=== PATIENT | male | born 1970 | race Caucasian/White ===

== ENCOUNTER → 2020-08-23 | Outpatient (CLI) | payer MEDICARE | END | disposition home or self-care (01) | LOC: LABPAT 11:57 | PROVIDERS: ATTEND Orthopaedic Surgery | DX: Z01.812 Encounter for preprocedural laboratory examination (principal) | CPT/HCPCS: 87070 ==

== ENCOUNTER → 2020-09-27 | Outpatient (CLI) | payer MEDICARE ==
--- NOTE | 2020-09-27 14:03 | MR ---
EXAMINATION TYPE: MR knee LT wo con DATE OF EXAM: 09/27/2020 COMPARISON: Plain film 08/21/2020 HISTORY: Left knee pain TECHNIQUE: Multiplanar, multisequence imaging of the left knee is performed without IV contrast. FINDINGS: MEDIAL MENISCUS: Anterior and posterior horns are intact without tear. LATERAL MENISCUS: Anterior and posterior horns are intact without tear. CRUCIATE LIGAMENTS: The anterior and posterior cruciate ligaments are intact and unremarkable. COLLATERAL LIGAMENTS: The medial collateral ligament and lateral collateral ligament complex are inta ct and unremarkable. EXTENSOR MECHANISM: Visualized quadriceps and patellar tendons are intact. EFFUSION: Suprapatellar joint effusion is present. POPLITEAL CYST: No popliteal/aguilar cyst. TRICOMPARTMENT SPACES: Maintained CARTILAGE: Grade 3 to grade IV chondromalacia posterior patella, lateral femoral condyle. BONE MARROW SIGNAL: Some minimal subchondral geode formation may be present at the lateral femoral co ndyle, axial image #20, proximal tibia, coronal image 21 OTHER: Question some ganglion formation near the intercondylar notch anteriorly, coronal image #15 a nd also posteriorly, axial image 17, sagittal image #17 IMPRESSION: Osteoarthritis. Additional findings above.
== END | disposition home or self-care (01) ==
LOC: RADMRIMAIN 10:54
PROVIDERS: ATTEND Orthopaedic Surgery
DX: M17.12 Unilateral primary osteoarthritis, left knee (principal); M22.42 Chondromalacia patellae, left knee

== ENCOUNTER → 2020-10-12 | Outpatient (CLI) | payer MEDICARE ==
[2020-10-12 11:06] LABS: Basophils % (A) 1 %; Eosinophils # (A) 0.4 k/uL (0-0.7); Eosinophils % (A) 5 %; HCT 39.5 % (39.0-53.0); HGB 13.2 gm/dL (13.0-17.5); Lymphocytes # (A) 0.7 k/uL (1.0-4.8); Lymphocytes % (A) 9 %; MCH 31.5 pg (25.0-35.0); MCHC 33.5 g/dL (31.0-37.0); Mean Platelet Volume 6.3; Monocytes # (A) 0.4 k/uL (0-1.0); Monocytes % (A) 5 %; Neutrophils # (A) 5.8 k/uL (1.3-7.7); Neutrophils % (A) 78 %; Platelet Count 309 k/uL (150-450); RDW 13.4 % (11.5-15.5); WBC 7.4 k/uL (3.8-10.6)
[2020-10-12 11:10] LABS: Potassium 5.3 mmol/L (3.5-5.1)
[2020-10-12 11:34] LABS: INR 0.9 (<1.2); Prothrombin Time 9.7 sec (9.0-12.0)
== END | disposition home or self-care (01) ==
LOC: LABPAT 10:08
PROVIDERS: ATTEND Orthopaedic Surgery
DX: Z01.818 Encounter for other preprocedural examination (principal); M17.11 Unilateral primary osteoarthritis, right knee
CPT/HCPCS: 36415; 80051; 85025; 85610

== ENCOUNTER 2020-10-15 06:05 | Inpatient (IN) | payer MEDICARE ==
[2020-10-10 14:13] VITALS: BMI 41.3
--- NOTE | 2020-10-14 10:43 | HP ---
HISTORY AND PHYSICAL REASON FOR ADMISSION: Surgery scheduled for 10/15/2020 HISTORY OF PRESENT ILLNESS: Savage Newell is a 50-year-old gentleman seen with symptomatic right knee osteoarthritis. We discussed options for treatment. He elected to proceed with right total knee arthroplasty. Consent regarding the procedure was obtained. Medical clearance was provided by Zeinab Kahn NP. PAST MEDICAL HISTORY: Hypertension, dhp-hzqwqku-gebfvmsdx diabetes, hyperlipidemia. PAST SURGICAL HISTORY: Cholecystectomy, left knee arthroscopy. MEDICATIONS: Atorvastatin, benazepril, metformin, tramadol, ibuprofen. ALLERGIES: None. SOCIAL HISTORY: Denies current tobacco use. PHYSICAL EVALUATION OF THE RIGHT KNEE: Range of motion is -2 to 120. Tenderness along the lateral joint line, crepitus lateral patellofemoral compartments with range of motion. Pain with patellofemoral compression. Ligaments appear stable. Distal neurovascular exam is intact. RADIOGRAPHS: Radiographs of the right knee reveal severe osteoarthritic changes. IMPRESSION: 1. Right knee osteoarthritis. 2. Hypertension. 3. Hyperlipidemia. 4. [id number]-thacmgddp diabetes. PLAN: Right total knee arthroplasty. Surgery 10/15/2020. MMODL / IJN: [id number] /
[~2020-10-15 06:05] MED LIST: ACETAMINOPHEN TAB 500 MG TAB PO ONE; MELOXICAM 7.5 MG TAB PO ONE; ROPIVACAINE 246.25 MG, EPINEPHrine 0.5 MG, KETOROLAC 30 MG, cloNIDine HCL/PF 80 MCG, WA... MISCELLANE ONE; TRANEXAMIC ACID 1,000 MG in SODIUM CHLORIDE 0.9% 100 ML IVPB ONE; VANCOMYCIN 2,000 MG in SODIUM CHLORIDE 0.9% 500 ML 500 ML IVPB ONE
[2020-10-15 06:46] LABS: Glucose,Whole Blood 161 mg/dL (75-99)
[2020-10-15] MEDS ORDERED: MIDAZOLAM 2 MG/2 ML VIAL IV ONE (06:52)
[2020-10-15] MEDS ORDERED: fentaNYL (PF) 50 MCG/ML 2 ML AMP IV ONE (06:52)
[2020-10-15] MEDS ORDERED: LACTATED RINGERS 1,000 ML IV ONE ×2 (07:06→09:38)
[2020-10-15] MEDS ORDERED: ONDANSETRON 4 MG/2 ML VIAL ONE (07:17)
[2020-10-15] MEDS ORDERED: DEXAMETHASONE SOD PHOSPHATE 4 MG/ML 1 ML VIAL IV ONE (07:25)
[2020-10-15] MEDS ORDERED: ONDANSETRON 4 MG/2 ML VIAL IVP ONE (07:25)
[2020-10-15] MEDS ORDERED: SODIUM CHLORIDE 0.9% 100 ML BAG ONE (07:27)
[2020-10-15] MEDS ORDERED: MIDAZOLAM 2 MG/2 ML VIAL ONE (07:27)
[2020-10-15] MEDS ORDERED: TRANEXAMIC ACID 1,000 MG/10 ML VIAL ONE (07:27)
[2020-10-15] MEDS ORDERED: diphenhydrAMINE 50 MG/ML 1 ML VIAL ONE (07:27)
[2020-10-15] MEDS ORDERED: LIDOCAINE 1% INJ 10MG/ML (20 ML MDV) ONE (07:27)
[2020-10-15] MEDS ORDERED: ceFAZolin 1,000 MG in SODIUM CHLORIDE 0.9% 1,000 ML IRRIGATION ONE (08:02)
[2020-10-15] MEDS ORDERED: ROPIVACAINE 0.2%-NS ON-Q PUMP 1,090 MG, EMPTY PAIN BALL 1 EACH MISCELLANE PRN (09:14)
[2020-10-15] MEDS ORDERED: NALOXONE 0.4 MG/ML 1 ML VIAL IV PRN (09:24)
[2020-10-15] MEDS ORDERED: ONDANSETRON 4 MG/2 ML VIAL IVP PRN (09:24)
[2020-10-15] MEDS ORDERED: HYDROcodone/APAP 5-325MG 1 EACH TAB PO PRN (09:24)
[2020-10-15] MEDS ORDERED: HYDROmorphone 0.2 MG/1 ML SYRINGE IVP PRN (09:24)
[2020-10-15] MEDS ORDERED: HYDROmorphone 0.5 MG/0.5 ML SYRINGE IVP PRN (09:24)
--- NOTE | 2020-10-15 09:24 | P.OP ---
Date of Procedure: 10/15/20 Preoperative Diagnosis: Right knee osteoarthritis Postoperative Diagnosis: Right knee osteoarthritis Procedure(s) Performed: Right total knee arthroplasty Implants: 1. Depuy attune size 7 cruciate retaining cemented femur 2. Depuy attune size 7 fixed bearing cemented tibial baseplate 3. Depuy attune size 7 fixed bearing cruciate retaining 10 mm polyethylene tibial insert 4. Depuy attune 38 mm all polyethylene cemented patella Anesthesia: regional (Adductor canal catheter), local, spinal Surgeon: Aric Kahn Deputy Treasurer #1: Mg Mckinney Estimated Blood Loss (ml): 50 Pathology: other (Bone) Condition: stable Disposition: PACU Indications for Procedure: 50-year-old gentleman seen with symptomatic right knee osteoarthritis. After treatment options were discussed, he elected to proceed with total knee arthro plasty. Operative Findings: see description of procedure Description of Procedure: Patient was taken to the operative suite after having an adductor canal catheter placed by the department of anesthesia. Patient underwent a spinal anesthetic by the department of anesthesia. Patient was given preoperative IV intake antibiotics and TXA. A well-padded tourniquet was placed about the right lower extremity. The lower extremity was then prepped and draped in the normal sterile orthopedic fashion. The extremity was elevated, a tourniquet was in sufflated to 300. A standard anterior incision was made sharply through skin. Dissection was taken down through the subcutaneous soft tissues down to the extensor mechanism. A medial arthrotomy was performed, patella was everted and knee was flexed. There was advanced osteoarthritis noted. I introduced my distal intramedullary femoral drill. I then introduced the distal femoral cutting jig. Jay Jay FORD secured the cutting jig with 2 pins. I held retractors in position while Jay Jay FORD performed the distal femoral resection through the guide area we now removed her distal femoral cutting guide. We now placed our 4-in-1 femoral cutting block and positioned and it was secured with 2 pins by Jay Jay FORD while I held the block in position. The distal femoral finishing was now completed. A proximal tibial cutting guide was positioned. I held the guide in the appropriate position with both hands well Jay Jay FORD inserted stabilizing pins into the guide. Proximal tibial cut was made. We now placed a trial femoral component into position, along with an appropriate size tibial tray and insert. We now took the knee through range of motion and had full extension good flexion and good overall soft tissue balance noted. The patella was everted and stabilized with 2 towel clips held by Jay Jay FORD while I performed a flush with patellar quad tendon utilizing a fresh sawblade. We templated the patella, appropriate drill holes were made. An appropriate trial patella was positioned, knee was taken through full range of motion with the patella tracking very nicely. The trial patella was removed. Drill holes were made through the femoral component. All trial components were removed after marking off the appropriate rotation of the tibia. Retractors were now positioned along the proximal tibia. An appropriate keel punch was made with the appropriate size tibial guide by myself on Jay Jay FORD assisted by holding retractors. At this point appropriate size implants were chosen and opened. The joint was irrigated copiously with pulse lavage mechanical irrigation. The posterior capsule was infiltrated with local analgesic. The wound was irrigated with pulse lavage mechanical irrigation. We mixed antibiotic methylmethacrylate. We placed the knee into flexion. We placed multiple retractors assisted by Jay Jay FORD to expose the proximal tibia. Once the methyl methacrylate was ready, the tibial component was cemented into place removing any excess methylmethacrylate form by both myself and Jay Jay FORD. The femoral component was cemented into place removing the removing any excess methylmethacrylate performed by both myself and Jay Jay FORD. We then inserted the appropriate size polyethylene tibial insert. We made sure that it was locked into position. We took the knee into full extension, and then back in a flexion making sure we had removed any excess methylmethacrylate. The patellar component was then cemented down and secured with clamp. Excess methylmethacrylate removed. We kept the knee in full extension, patellar clamp in position until methylmethacrylate had hardened. Once it had hardened the patellar clamp was removed. The knee was taken through full range of motion. The patella tracked nicely. There was good soft tissue balancing. The tourniquet was now released. Additional hemostasis was achieved via electrocautery. A second gram of TXA was given. The wound again was irrigated with pulse lavage mechanical irrigation. The superficial soft tissues were infiltrated local analgesic. The extensor mechanism was repaired with Vicryl. We checked the repair with range of motion and it was stable. The subcutaneous soft tissues were repaired with Vicryl in layers. The skin was approximated with pernio/Dermabond. Sterile dressings were applied followed by loose web roll and Pranav bandage. The patient was transferred to a bed, and taken to recovery in stable and satisfactory condition. Jay Jay FORD assisted with this complex procedure.
[2020-10-15 10:19] LABS: Glucose,Whole Blood 182 mg/dL (75-99)
--- NOTE | 2020-10-15 10:39 | P.ANPRN ---
Procedure Note - Anesthesia - Nerve Block Performed Right Adductor Canal Infusion Time Out Performed: Yes (651) Date of Procedure: 10/15/20 Procedure Start Time: 06:52 Procedure Stop Time: 07:01 Location of Patient: PreOp Indication: Acute Post-Operative Pain, Requested by Surgeon Specifically requested for management of pain by DrDania: Aric Kahn Sedation Type: Sedate with meaningful contact maintained Preparation: Sterile Prep Position: Supine Catheter Depth at Skin (cm): 8 Catheter: Indwelling Needle Types: Pajunk Needle Gauge: 21 Ultrasound used to visualize needle placement: Yes Ultrasound used to observe medication spread: Yes Injectate: 0.5% Ropivacaine (see comment for volume) (20cc) Blood Aspirated: No Pain Paresthesia on Injection Noted: No Resistance on Injection: Normal Image Stored and Saved: Yes Events: Uneventful and Well Tolerated
--- NOTE | 2020-10-15 10:40 | XR ---
EXAMINATION TYPE: XR knee limited RT DATE OF EXAM: 10/15/2020 CLINICAL HISTORY: Right knee status post total knee replacement. TECHNIQUE: Portable AP and crosstable lateral views of the right knee are obtained immediately posto peratively. COMPARISON: None FINDINGS: Metallic hardware from total right knee arthroplasty is seen and appears satisfactory in a lignment and position. There is evidence of recent surgery with diffuse subcutaneous gas and cutaneo us irregularity anteriorly. There is a punctate radiopaque density of the lateral anterior infrapatel lar aspect of the knee of uncertain etiology. IMPRESSION: 1. Metallic hardware from total right knee arthroplasty is satisfactory in alignment. 2. Punctate radiopaque density at the lateral anterior knee of uncertain etiology.
[2020-10-15] MEDS: LACTATED RINGERS 1,000 ML IV SCH ×2 (11:36→21:48)
[2020-10-15] MEDS: HYDROcodone/APAP 5-325MG 1 EACH TAB PO PRN (12:03)
[2020-10-15] MEDS ORDERED: ALBUTEROL NEBULIZED 2.5 MG/3 ML INHALATION PRN (13:46)
[2020-10-15] MEDS: HYDROmorphone 1 MG/ML 1 ML SYRINGE IVP PRN ×3 (14:41→22:35)
--- NOTE | 2020-10-15 14:45 | P.CONS ---
History of Present Illness - Reason for Consult Consult date: 10/15/20 Medical Management, Post-operative ortho patient - Chief Complaint s/p Right TKA - History of Present Illness 50 year old man with history of HTN, DM, HLD, OA presented for elective R TKA; medicine consulted post-operatively for medical management. Patient is doing well following procedure with complaints of some pain, which is tolerable. Still has not been up with weight bearing at the time of my evaluation on POD #0. Patient has no other complaints at this time. History of HLD, DM, HTN for which he is compliant with medications at home. He is on oral glycemic agents only and adamantly refuses insulin even while in house only. Review of Systems All Systems reviewed and pertinent positives and negatives noted in HPI, all other symptoms are negative Past Medical History Past Medical History: COPD, Diabetes Mellitus, Hyperlipidemia, Hypertension, Osteoarthritis (OA), Skin Disorder, Sleep Apnea/CPAP/BIPAP Additional Past Medical History / Comment(s): eczema right shoulder, doesn't use CPAP History of Any Multi-Drug Resistant Organisms: None Reported Past Surgical History: Cholecystectomy, Ear Surgery, Orthopedic Surgery Additional Past Surgical History / Comment(s): arthroscopy knee, left ear surg., skin lesions removed shy arms Past Anesthesia/Blood Transfusion Reactions: No Reported Reaction Past Psychological History: No Psychological Hx Reported Smoking Status: Former smoker Past Alcohol Use History: Rare Additional Past Alcohol Use History / Comment(s): quit smoking 7 yrs. ago, smoked for 30 yrs. 1ppd Past Drug Use History: None Reported - Past Family History Mother Family Medical History: Cancer Father Family Medical History: Cancer Medications and Allergies Home Medications Medication Instructions Recorded Confirmed Type Aspirin [Adult Low Dose Aspirin EC] 81 mg PO DAILY 01/12/19 10/10/20 History Atorvastatin [Lipitor] 20 mg PO HS 01/12/19 10/15/20 History Benazepril [Lotensin] 10 mg PO HS 01/12/19 10/15/20 History metFORMIN HCL [Glucophage] 850 mg PO BID 01/12/19 10/15/20 History Albuterol Inhaler [Ventolin Hfa 2 puff INHALATION RT-QID PRN 10/10/20 10/15/20 History Inhaler] Diclofenac Sodium Gel [Voltaren 4 gm TOPICAL QID PRN 10/10/20 10/15/20 History Gel] Ibuprofen [Motrin] 800 mg PO Q8H PRN 10/10/20 10/10/20 History Naproxen Sodium [Aleve] 220 mg PO BID 10/10/20 10/10/20 History traMADol HCL [Ultram] 50 mg PO Q8H PRN 10/10/20 10/15/20 History Allergies Allergy/AdvReac Type Severity Reaction Status Date / Time No Known Allergies Allergy Verified 10/15/20 06:27 Physical Exam Osteopathic Statement: *. No significant issues noted on an osteopathic structural exam other than those noted in the History and Physical/Consult. Vitals: Vital Signs Temp Pulse Resp BP Pulse Ox 10/15/20 13:05 64 123/71 96 10/15/20 12:50 66 113/85 96 10/15/20 12:35 67 118/75 96 10/15/20 12:20 64 130/84 96 10/15/20 11:30 69 16 102/52 95 10/15/20 11:00 73 16 106/58 99 10/15/20 10:45 66 12 93/54 96 10/15/20 10:30 65 12 102/57 95 10/15/20 10:15 66 12 99/56 96 10/15/20 10:00 61 12 105/59 97 10/15/20 09:49 97.8 F 77 12 108/66 96 10/15/20 07:06 70 16 131/67 100 10/15/20 06:35 97.8 F 86 16 118/66 99 Intake and Output 10/14/20 10/15/20 10/15/20 22:59 06:59 14:59 Intake Total 1801 Output Total 50 Balance 1751 Intake: IV 1801 Output: Estimated Blood Loss 50 Other: # Voids 3 Weight 139.3 kg 139.3 kg Gen: awake, alert HEENT: normocephalic, atraumatic, good hearing acuity, moist mucous membranes Resp: CTAB, good air exchange, no accessory muscle use, no wheezes, crackles, rhonchi CVS: good distal perfusion x 4, RRR, no murmurs, clicks, gallops GI: soft, NTTP, ND : no SPT, no CVAT, reich catheter not present MSK: b/l tracw pitting edema, no clubbing Neuro: non-focal, no sensory deficits, appropriate tone Psych: cooperative, euthymic mood Results Labs: Abnormal Lab Results - Last 24 Hours (Table) 10/15/20 10/15/20 Range/Units 06:45 10:18 POC Glucose (mg/dL) 161 H 182 H (75-99) mg/dL Assessment and Plan Assessment: 1. Type 2 diabetes with hyperglycemia 2. Hypertension, essential 3. Hyperlipidemia 4. Osteoarthritis status post right TKA 50-year-old male with past medical history of HTN/HLD/DM, OA status post right TKA is doing well postoperatively with complaints of minimal pain in the right knee; medicine consulted for medical management. Plan: Patient is doing well post-op. Home medications were reviewed and resumed Sugars are elevated, but patient is refusing correctional insulin; it is okay to continue holding his home oral glycemics until discharge, we will reassess if sugars >200 and ongoing need for inpatient hospitalization pain control per anesthesia and primary team, currently with OnQ pump PT/OT for early ambulation Full Code
[2020-10-15] MEDS ORDERED: INSULIN ASPART (NovoLOG) 100 UNIT/ML VIAL SQ SCH (17:30)
[2020-10-15 20:40] LABS: Glucose,Whole Blood 166 mg/dL (75-99)
[2020-10-15] MEDS: ATORVASTATIN 20 MG TAB PO SCH (21:47)
[2020-10-15] MEDS: SENNOSIDES-DOCUSATE SODIUM 1 EACH TAB PO SCH (21:47)
[2020-10-15] MEDS: lisinopriL 10 MG TAB PO SCH (21:48)
[2020-10-15] MEDS: ENOXAPARIN 30 MG/0.3 ML SYRINGE SQ SCH (21:48)
[2020-10-16] MEDS: HYDROmorphone 1 MG/ML 1 ML SYRINGE IVP PRN (03:37)
[2020-10-16] MEDS: LACTATED RINGERS 1,000 ML IV SCH ×2 (06:02→07:47)
[2020-10-16 06:58] LABS: Glucose,Whole Blood 211 mg/dL (75-99)
[2020-10-16] MEDS: ASPIRIN 81 MG PO SCH (07:47)
[2020-10-16] MEDS: ENOXAPARIN 30 MG/0.3 ML SYRINGE SQ SCH ×2 (07:47→20:55)
[2020-10-16] MEDS: MELOXICAM 7.5 MG TAB PO SCH (07:47)
[2020-10-16] MEDS: HYDROcodone/APAP 5-325MG 1 EACH TAB PO PRN (08:00)
[2020-10-16 08:22] LABS: Basophils % (A) 0 %; Eosinophils # (A) 0.1 k/uL (0-0.7); Eosinophils % (A) 1 %; HCT 35.3 % (39.0-53.0); HGB 11.7 gm/dL (13.0-17.5); Lymphocytes # (A) 0.5 k/uL (1.0-4.8); Lymphocytes % (A) 4 %; MCH 31.3 pg (25.0-35.0); MCHC 33.1 g/dL (31.0-37.0); MCV 94.7 fL (80.0-100.0); Mean Platelet Volume 6.4; Monocytes # (A) 0.6 k/uL (0-1.0); Monocytes % (A) 5 %; Neutrophils # (A) 10.2 k/uL (1.3-7.7); Neutrophils % (A) 89 %; Platelet Count 296 k/uL (150-450); RBC 3.73 m/uL (4.30-5.90); RDW 13.4 % (11.5-15.5); WBC 11.5 k/uL (3.8-10.6)
--- NOTE | 2020-10-16 08:22 | P.PN ---
Progress Note - Text Progress Note Date: 10/16/20 (310) Anesthesiology Postop day 1 status post total knee arthroplasty with adductor canal catheter. Patient doing well. VAS 5-8 out of 10. Gross strength intact in lower extremity. Afebrile. Denies alterations in sensorium. Catheter site intact. Heart regular rate Lungs nonlabored Abdomen nondistended Assessment: Postop day 1 status post total knee arthroplasty with adductor canal catheter Plan: All questions answered. Maintain catheter 2 more days with patient removal at home. Instructions were given at discharge.
[2020-10-16 11:09] LABS: Glucose,Whole Blood 219 mg/dL (75-99)
--- NOTE | 2020-10-16 12:49 | P.PN ---
Subjective Progress Note Date: 10/16/20 Having some additional pain in knee today, but is having challenging time bearing weight on right knee. Sugars have not been well controlled, but patient refuses insulin, can consider replacing his oral meds from home if patient will stay beyond tomorrow. Objective - Vital Signs Vital signs: Vital Signs Temp 98.7 F 10/16/20 07:00 Pulse 100 10/16/20 08:00 Resp 17 10/16/20 08:00 BP 120/69 10/16/20 07:00 Pulse Ox 93 L 10/16/20 07:00 Intake & Output 10/15/20 10/16/20 10/16/20 18:59 06:59 18:59 Intake Total 1801 800 Output Total 50 Balance 1751 800 Weight 139.3 kg Intake: IV 1801 Intake, IV Titration 400 Amount Lactated Ringers 1,000 ml 400 @ 100 mls/hr IV .Q10H MARCELA Rx#:[id number] Oral 400 Output: Estimated Blood Loss 50 Other: # Voids 3 2 - Exam Gen: awake, alert HEENT: normocephalic, atraumatic, good hearing acuity, moist mucous membranes Resp: CTAB, good air exchange, no accessory muscle use, no wheezes, crackles, rhonchi CVS: good distal perfusion x 4, RRR, no murmurs, clicks, gallops GI: soft, NTTP, ND : no SPT, no CVAT, reich catheter not present MSK: b/l tracw pitting edema, no clubbing Neuro: non-focal, no sensory deficits, appropriate tone Psych: cooperative, euthymic mood - Labs CBC & Chem 7: 10/16/20 07:13 Labs: Abnormal Lab Results - Last 24 Hours (Table) 10/15/20 10/16/20 10/16/20 Range/Units 20:35 06:56 07:13 WBC 11.5 H (3.8-10.6) k/uL RBC 3.73 L (4.30-5.90) m/uL Hgb 11.7 L (13.0-17.5) gm/dL Hct 35.3 L (39.0-53.0) % Neutrophils # 10.2 H (1.3-7.7) k/uL Lymphocytes # 0.5 L (1.0-4.8) k/uL POC Glucose (mg/dL) 166 H 211 H (75-99) mg/dL 10/16/20 Range/Units 11:07 WBC (3.8-10.6) k/uL RBC (4.30-5.90) m/uL Hgb (13.0-17.5) gm/dL Hct (39.0-53.0) % Neutrophils # (1.3-7.7) k/uL Lymphocytes # (1.0-4.8) k/uL POC Glucose (mg/dL) 219 H (75-99) mg/dL Assessment and Plan Assessment: 1. Type 2 diabetes with hyperglycemia 2. Hypertension, essential 3. Hyperlipidemia 4. Osteoarthritis status post right TKA 50-year-old male with past medical history of HTN/HLD/DM, OA status post right TKA is doing well postoperatively with complaints of minimal pain in the right knee; medicine consulted for medical management. Plan: Patient is doing well post-op. Home medications were reviewed and resumed Sugars are elevated, but patient is refusing correctional insulin; it is okay to continue holding his home oral glycemics until discharge, we will reassess if sugars >200 and ongoing need for inpatient hospitalization pain control per anesthesia and primary team, currently with OnQ pump PT/OT for early ambulation Full Code
[2020-10-16] MEDS ORDERED: HYDROcodone/APAP 7.5-325MG 1 EACH TAB PO PRN (12:50)
--- NOTE | 2020-10-16 12:54 | P.PN ---
Subjective Progress Note Date: 10/16/20 Principal diagnosis: Status post right total knee arthroplasty Patient Juan Alberto at bedside today, he is resting in his hospital bed. He did get up with physical therapy, he had a very difficult time with this. It is very painful when placing weight tingling. He did not get up the stairs. He has multiple stairs utilized to enter his house. He denies any headaches, lighthead edness, chest pain, shortness of breath, nausea or vomiting. Objective - Vital Signs Vital signs: Vital Signs Temp 98.7 F 10/16/20 07:00 Pulse 100 10/16/20 08:00 Resp 17 10/16/20 08:00 BP 120/69 10/16/20 07:00 Pulse Ox 93 L 10/16/20 07:00 Intake & Output 10/15/20 10/16/20 10/16/20 18:59 06:59 18:59 Intake Total 1801 800 Output Total 50 Balance 1751 800 Weight 139.3 kg Intake: IV 1801 Intake, IV Titration 400 Amount Lactated Ringers 1,000 ml 400 @ 100 mls/hr IV .Q10H MARCELA Rx#:[id number] Oral 400 Output: Estimated Blood Loss 50 Other: # Voids 3 2 - Exam Right lower extremity: Incision is clean, dry, and intact. The foam dressing is in good condition. There is minimal soft tissue swelling and ecchymosis surrounding the medial and lateral aspects of the incision. Calf is soft, no tenderness with palpation. Plantar flexion, dorsiflexion, EHL, FHL are intact. Sensory exam to light touch throughout the extremity is intact, dorsal pedis pulses 2+. - Labs CBC & Chem 7: 10/16/20 07:13 Labs: Abnormal Lab Results - Last 24 Hours (Table) 10/15/20 10/16/20 10/16/20 Range/Units 20:35 06:56 07:13 WBC 11.5 H (3.8-10.6) k/uL RBC 3.73 L (4.30-5.90) m/uL Hgb 11.7 L (13.0-17.5) gm/dL Hct 35.3 L (39.0-53.0) % Neutrophils # 10.2 H (1.3-7.7) k/uL Lymphocytes # 0.5 L (1.0-4.8) k/uL POC Glucose (mg/dL) 166 H 211 H (75-99) mg/dL 10/16/20 Range/Units 11:07 WBC (3.8-10.6) k/uL RBC (4.30-5.90) m/uL Hgb (13.0-17.5) gm/dL Hct (39.0-53.0) % Neutrophils # (1.3-7.7) k/uL Lymphocytes # (1.0-4.8) k/uL POC Glucose (mg/dL) 219 H (75-99) mg/dL Assessment and Plan Assessment: Status post right total knee arthroplasty Plan: Pain control, I did increase the oral medications DVT prophylaxis, continue current medication Wound care instructions were discussed, icing techniques discussed Continue worker physical therapy Encourage incentive spirometer Medical recommendations Plan for discharge home tomorrow Time with Patient: Less than 30
[2020-10-16] MEDS: HYDROcodone/APAP 7.5-325MG 1 EACH TAB PO PRN ×2 (12:58→20:55)
[2020-10-16 16:47] LABS: Glucose,Whole Blood 212 mg/dL (75-99)
[2020-10-16] MEDS: SENNOSIDES-DOCUSATE SODIUM 1 EACH TAB PO SCH (20:55)
[2020-10-16] MEDS: lisinopriL 10 MG TAB PO SCH (20:55)
[2020-10-16] MEDS: ATORVASTATIN 20 MG TAB PO SCH (20:55)
[2020-10-16 21:11] LABS: Glucose,Whole Blood 215 mg/dL (75-99)
[2020-10-17] MEDS: LACTATED RINGERS 1,000 ML IV SCH (04:36)
[2020-10-17] MEDS: HYDROcodone/APAP 7.5-325MG 1 EACH TAB PO PRN ×2 (04:39→10:21)
[2020-10-17 07:08] LABS: Glucose,Whole Blood 211 mg/dL (75-99)
[2020-10-17 07:55] VITALS: BP 142/80; PULSE 103; RESP 18; TEMP 98.4
[2020-10-17] MEDS ORDERED: metFORMIN 850 MG TAB PO SCH (09:00)
[2020-10-17] MEDS: MELOXICAM 7.5 MG TAB PO SCH (10:21)
[2020-10-17] MEDS: ASPIRIN 81 MG PO SCH (10:21)
[2020-10-17] MEDS: ENOXAPARIN 30 MG/0.3 ML SYRINGE SQ SCH (10:21)
--- NOTE | 2020-10-17 10:22 | P.PN ---
Subjective Progress Note Date: 10/17/20 Principal diagnosis: Status post right total knee arthroplasty Patient is examined at bedside today, he is resting in his hospital bed. Patient did do a little bit better today with the physical therapist. His pain is a little bit better controlled with the increasing oral medications. He denies any headaches, lightheadedness, chest pain, shortness of breath, nausea or vomiting. Objective - Vital Signs Vital signs: Vital Signs Temp 98.4 F 10/17/20 07:00 Pulse 103 H 10/17/20 07:00 Resp 18 10/17/20 07:00 BP 142/80 10/17/20 07:00 Pulse Ox 97 10/17/20 07:00 Intake & Output 10/16/20 10/17/20 10/17/20 18:59 06:59 18:59 Other: Voiding Method Toilet Urinal # Voids 2 - Exam Right lower extremity: Incision is clean, dry, and intact. The foam dressing is in good condition. There is minimal soft tissue swelling and ecchymosis surrounding the medial and lateral aspects of the incision. Calf is soft, no tenderness with palpation. Plantar flexion, dorsiflexion, EHL, FHL are intact. Sensory exam to light touch throughout the extremity is intact, dorsal pedis pulses 2+. - Labs CBC & Chem 7: 10/16/20 07:13 Labs: Abnormal Lab Results - Last 24 Hours (Table) 10/16/20 10/16/20 10/16/20 Range/Units 11:07 16:45 20:43 POC Glucose (mg/dL) 219 H 212 H 215 H (75-99) mg/dL 10/17/20 Range/Units 07:07 POC Glucose (mg/dL) 211 H (75-99) mg/dL Assessment and Plan Assessment: Status post right total knee arthroplasty Plan: Pain control, plan for discharge home on [place] 7.5 mg/325 mg DVT prophylaxis, aspirin 81 mg twice a day Wound care instructions were discussed, icing techniques discussed Continue worker physical therapy Encourage incentive spirometer Medical recommendations Plan for discharge home today Time with Patient: Less than 30
--- NOTE | 2020-10-17 10:25 | P.DS ---
Providers Date of admission: 10/15/2020 Expected date of discharge: 10/17/20 Attending physician: Aric Kahn Consults: 10/15/20 09:24 Consult Physician Routine Consulting Provider: Chin Light Consult Reason/Comments: Medical management Do you want consulting provider notified?: Yes Primary care physician: Zeinab [facility] Course: Date of admission: 10/15/2020 Date of discharge: 10/17/2020 Admission diagnosis: Status post right total knee arthroplasty Discharge diagnosis: Same Attending physician: Dr. Kahn Surgical procedures: Right total knee arthroplasty Brief history: Patient is a 50-year-old male with a history of progressive primary right knee osteoarthritis. At this point patient has failed conservative treatment measures and has opted to proceed with a elective right total knee arthroplasty. Hospital course: Details of patient's surgery can be found in operative report. Patient tolerated the procedure well and was subsequently transported to orthopedic floor. Patient's orthopeidc and medical care was provided daily. Patient had daily laboratory tests performed for evaluation of overall blood counts. Patient had daily physical therapy to include strengthening range of motion as well as education with walker ambulation. Patient was treated with Lovenox for their postoperative DVT prophylaxis during their inpatient stay. Patient was noted to have a relatively uneventful postoperative course. Patient reported satisfactory pain control with oral pain medications by postoperative day 0. Patient showed satisfactory progress with physical therapy. Patient moved steadily through the program and had no difficulty meeting the goals by postoperative day 2. Given patient's otherwise satisfactory course and having met physical therapy goals, plan is to discharge patient home on postoperative day 2. Discharge condition/disposition: Patient will be discharged home in stable condition. Discharge medications: Instructions are given on resumption of patient's normal daily medications per primary care recommendation, in addition patient will be prescribed for 7.5 mg/25 mg, Colace 100 mg. Discharge instructions: 1. Wound care and infection precautions, keep incision dry and covered while showering, no lotions, creams, moisturizers. No soaking, tubs, pools, hottubs. Do not scrub over the incision. Okay to remove dressing on 10/25/2020, okay to shower over the incision once the foam dressing has been removed. 2. Weight-bear as tolerated with walker / cane until follow-up. 3. Ice and elevate when necessary. Do not exceed 20 minutes per hour with ice pack. 4. Utilize compression sleeve until seen at first follow up appointment. 5. Visiting nursing care. 6. Home physical therapy including home CPM. 7. Pain meds and anticoagulants per prescription. 8. Pain medication has potential to cause constipation. Increase oral fluid and fiber intake. Contact primary care provider if you have not had a bowel movement within 48 hours after discharge 9. No anti-inflammatory medication until discussed at first post operative visit, this including Motrin, Aleve, Mobic, Diclofenac 10. Follow up in office at 2 weeks postop with Jay Jay Mckinney PA-C 11. Follow up with your primary care doctor 7-10 days after discharge. 12. Contact [facility] with any questions, . Procedures: Right total knee arthroplasty Patient Condition at Discharge: Good Plan - Discharge Summary Discharge Rx Participant: No New Discharge Prescriptions: New Aspirin [Adult Low Dose Aspirin EC] 81 mg PO BID #60 tablet. Docusate [Colace] 100 mg PO DAILY #30 capsule HYDROcodone/APAP 7.5-325MG [Eakly 7.5] 1 - 2 each PO Q6HR PRN #42 tab PRN Reason: Pain No Action metFORMIN HCL [Glucophage] 850 mg PO BID Benazepril [Lotensin] 10 mg PO HS Atorvastatin [Lipitor] 20 mg PO HS Aspirin [Adult Low Dose Aspirin EC] 81 mg PO DAILY Diclofenac Sodium Gel [Voltaren Gel] 4 gm TOPICAL QID PRN PRN Reason: Pain traMADol HCL [Ultram] 50 mg PO Q8H PRN PRN Reason: Pain Naproxen Sodium [Aleve] 220 mg PO BID Ibuprofen [Motrin] 800 mg PO Q8H PRN PRN Reason: Pain Albuterol Inhaler [Ventolin Hfa Inhaler] 2 puff INHALATION RT-QID PRN PRN Reason: Dyspnea Discharge Medication List Aspirin [Adult Low Dose Aspirin EC] 81 mg PO DAILY 01/12/19 [History] Atorvastatin [Lipitor] 20 mg PO HS 01/12/19 [History] Benazepril [Lotensin] 10 mg PO HS 01/12/19 [History] metFORMIN HCL [Glucophage] 850 mg PO BID 01/12/19 [History] Albuterol Inhaler [Ventolin Hfa Inhaler] 2 puff INHALATION RT-QID PRN 10/10/20 [History] Diclofenac Sodium Gel [Voltaren Gel] 4 gm TOPICAL QID PRN 10/10/20 [History] Ibuprofen [Motrin] 800 mg PO Q8H PRN 10/10/20 [History] Naproxen Sodium [Aleve] 220 mg PO BID 10/10/20 [History] traMADol HCL [Ultram] 50 mg PO Q8H PRN 10/10/20 [History] Aspirin [Adult Low Dose Aspirin EC] 81 mg PO BID #60 tablet.dr 10/17/20 [Rx] Docusate [Colace] 100 mg PO DAILY #30 capsule 10/17/20 [Rx] HYDROcodone/APAP 7.5-325MG [Eakly 7.5] 1 - 2 each PO Q6HR PRN #42 tab 10/17/20 [Rx] Follow up Appointment(s)/Referral(s): [facility] [NON-STAFF] - As Needed (Continuous Passive Motion knee machine and walker.) Zeinab Kilpatrick MD [Primary Care Provider] - 1 Week [facility], [NON-STAFF] - As Needed Mg Mckinney PAC [PHYSICIAN SOLAR THERMAL INSTALLER] - 10/31/20 1:50 pm Activity/Diet/Wound Care/Special Instructions: Orthopedic Discharge Instructions: 1. Wound care and infection precautions, keep incision dry and covered while showering, no lotions, creams, moisturizers. No soaking, pools, hot tubs. Do not scrub over incision. Okay to remove foam dressing on 10/25/2020, okay to shower over incision after foam dressing comes off 2. Weight-bear as tolerated with walker / cane until follow-up. 3. Ice and elevate when necessary. Do not exceed 20 minutes per hour with ice pack. 4. Utilize compression sleeve until seen at first follow up appointment. 5. Pain meds and anticoagulants per prescription. 6. Pain medication has potential to cause constipation. Increase oral fluid and fiber intake. Contact primary care provider if you have not had a bowel movement within 48 hours after discharge. 7. No anti-inflammatory medication until discussed at first post operative visit, this including Motrin, Aleve, Mobic, Diclofenac. 8. Follow up in office at 2 weeks postop with Jay Jay Mckinney PA-C 9. Follow up with your primary care doctor 7-10 days after discharge. 10. Contact [facility] with any questions, . Discharge Disposition: HOME WITH HOME HEALTH SERVICES
--- NOTE | 2020-10-17 16:36 | P.PN ---
Subjective Progress Note Date: 10/17/20 No new complaints today. patient to be dsicharged home with PT/OT. Sugars remain high without metformin. Objective - Vital Signs Vital signs: Vital Signs Temp 98.4 F 10/17/20 07:00 Pulse 103 H 10/17/20 07:00 Resp 18 10/17/20 07:00 BP 142/80 10/17/20 07:00 Pulse Ox 97 10/17/20 07:00 Intake & Output 10/16/20 10/17/20 10/17/20 18:59 06:59 18:59 Other: Voiding Method Toilet Urinal # Voids 2 - Exam Gen: awake, alert HEENT: normocephalic, atraumatic, good hearing acuity, moist mucous membranes Resp: CTAB, good air exchange, no accessory muscle use, no wheezes, crackles, rhonchi CVS: good distal perfusion x 4, RRR, no murmurs, clicks, gallops GI: soft, NTTP, ND : no SPT, no CVAT, reich catheter not present MSK: b/l tracw pitting edema, no clubbing Neuro: non-focal, no sensory deficits, appropriate tone Psych: cooperative, euthymic mood - Labs CBC & Chem 7: 10/16/20 07:13 Labs: Abnormal Lab Results - Last 24 Hours (Table) 10/16/20 10/16/20 10/17/20 Range/Units 16:45 20:43 07:07 POC Glucose (mg/dL) 212 H 215 H 211 H (75-99) mg/dL Assessment and Plan Assessment: 1. Type 2 diabetes with hyperglycemia 2. Hypertension, essential 3. Hyperlipidemia 4. Osteoarthritis status post right TKA 50-year-old male with past medical history of HTN/HLD/DM, OA status post right TKA is doing well postoperatively with complaints of minimal pain in the right knee; medicine consulted for medical management. Plan: Patient is doing well post-op. Home medications were reviewed and resumed Sugars are elevated, but patient is refusing correctional insulin; continued metformin today on day of discharge. pain control per anesthesia and primary team, currently with OnQ pump PT/OT for early ambulation Full Code
== END 2020-10-17 13:26 | disposition home health service (06) | DRG 470 ==
LOC: OR 06:05 → 4SSUR 11:33 → OR 10-16 10:37 → OBSVTOIN 10-16 12:54
PROVIDERS: ADMIT Orthopaedic Surgery; ATTEND Orthopaedic Surgery
PROC: 0SRC0J9 Replacement of Right Knee Joint with Synthetic Substitute, Cemented, Open Approach (ICD-10-PCS; principal; 2020-10-15 07:30)
DX: M17.11 Unilateral primary osteoarthritis, right knee (principal); E11.65 Type 2 diabetes mellitus with hyperglycemia; J44.9 Chronic obstructive pulmonary disease, unspecified; E78.5 Hyperlipidemia, unspecified; I10 Essential (primary) hypertension; G47.33 Obstructive sleep apnea (adult) (pediatric); L30.9 Dermatitis, unspecified; Z79.82 Long term (current) use of aspirin; Z79.84 Long term (current) use of oral hypoglycemic drugs; Z79.899 Other long term (current) drug therapy; Z90.49 Acquired absence of other specified parts of digestive tract; Z98.890 Other specified postprocedural states; Z87.891 Personal history of nicotine dependence; Z80.9 Family history of malignant neoplasm, unspecified
CPT/HCPCS: 64448; 76942; 85025; 88300

== ENCOUNTER → 2021-01-19 | Outpatient (CLI) | payer MEDICARE ==
--- NOTE | 2021-01-19 13:21 | MR ---
EXAMINATION TYPE: MR knee LT wo con DATE OF EXAM: 01/19/2021 COMPARISON: Prior MRI left knee September 27, 2020 HISTORY: Lt knee pain with locking for 12 years TECHNIQUE: Multiplanar, multisequence imaging of the left knee is performed without IV contrast. FINDINGS: Examination is suboptimal as patient continues to move despite multiple warnings. MEDIAL MENISCUS: New subtle oblique linear signal seen best on coronal image 21 extends to inferior a rticular surface posterior horn. LATERAL MENISCUS: Anterior and posterior horns are intact without new tear. More central increased si gnal along superior portion of the anterior horn is unchanged. Intrasubstance tear suspected. CRUCIATE LIGAMENTS: The anterior and posterior cruciate ligaments are intact and unremarkable. COLLATERAL LIGAMENTS: The medial collateral ligament and lateral collateral ligament complex are inta ct and unremarkable. EXTENSOR MECHANISM: Visualized quadriceps and patellar tendons are intact. EFFUSION: Tiny suprapatellar joint effusion is stable. POPLITEAL CYST: No popliteal/aguilar cyst. TRICOMPARTMENT SPACES: Mild to moderate tricompartment joint space loss and spurring. CARTILAGE: Some chondromalacia patella particularly along the lateral posterior patellar articulating facet. Some cartilaginous loss medial tibiofemoral compartment redemonstrated. BONE MARROW SIGNAL: No focal abnormal marrow signal is appreciated. OTHER: No additional significant abnormality is appreciated. IMPRESSION: Suboptimal study. Mild to moderate tricompartment degenerative changes somewhat prominent for patient's chronologic age. No significant interval progression from prior MRI. Suspect new subtl e oblique full-thickness tear posterior horn medial meniscus versus old MRI.
== END | disposition home or self-care (01) ==
LOC: RADMRIMAIN 11:55
PROVIDERS: ATTEND Orthopaedic Surgery
DX: M17.12 Unilateral primary osteoarthritis, left knee (principal)

== ENCOUNTER → 2021-02-18 | Outpatient (CLI) | payer MEDICARE ==
[2021-02-18 16:27] LABS: Basophils # (A) 0.03 X 10*3/uL (0.00-0.10); Basophils % (A) 0.4 %; Eosinophils # (A) 0.33 X 10*3/uL (0.04-0.35); Eosinophils % (A) 4.5 %; HCT 40.4 % (39.6-50.0); HGB 13.3 g/dL (13.0-17.0); Lymphocytes # (A) 0.77 X 10*3/uL (0.90-5.00); Lymphocytes % (A) 10.4 %; MCH 31.6 pg (27.0-32.0); MCHC 32.9 g/dL (32.0-37.0); Mean Platelet Volume 8.9 fL (9.5-12.2); Monocytes % (A) 8.1 %; Neutrophils # (A) 5.62 X 10*3/uL (1.80-7.70); Neutrophils % (A) 75.8 %; Platelet Count 337 X 10*3/uL (140-440); RBC 4.21 X 10*6/uL (4.40-5.60); RDW 13.5 % (11.5-14.5); WBC 7.41 X 10*3/uL (4.50-10.00)
[2021-02-18 17:21] LABS: Anion Gap 6.3 mmol/L (4.00-12.00); Carbon Dioxide 28.7 mmol/L (21.6-31.8)
== END | disposition home or self-care (01) ==
LOC: LABWHC1 09:57
PROVIDERS: ATTEND Orthopaedic Surgery
DX: Z01.818 Encounter for other preprocedural examination (principal); M23.92 Unspecified internal derangement of left knee
CPT/HCPCS: 36415; 80051; 85025

== ENCOUNTER 2021-02-27 10:35 | Day surgery (SDC) | payer MEDICARE ==
[2021-02-22 11:08] VITALS: BMI 41.2
--- NOTE | 2021-02-26 23:15 | HP ---
HISTORY AND PHYSICAL DATE OF SURGERY: 02/27/2021 Savage Newell is a 50-year-old gentleman seen with progressive left knee pain. Options for treatment were discussed. He elected to proceed with arthroscopy. Consent was obtained. PAST MEDICAL HISTORY: Hypertension, hyperlipidemia, hwb-xidhcqb-vbbfwjguc diabetes. PAST SURGICAL HISTORY: Cholecystectomy, knee arthroscopy. DAILY MEDICATIONS: Atorvastatin, aspirin, benazepril, metformin. ALLERGIES: NONE. SOCIAL HISTORY: He denies tobacco use. PHYSICAL EVALUATION OF THE LEFT KNEE: His range of motion is negative 2/3 to 120. Mild effusion. Tenderness, medial joint line. Positive medial Eliel's. Pain with patellofemoral compression. Crepitus in medial patellofemoral compartments. Ligaments stable. Hip rotation without pain. Distal neurovascular exam intact. RADIOGRAPHS: Left knee radiographs revealed osteoarthritic changes, left knee. MRI revealed a medial meniscal tear. IMPRESSION: 1. Internal derangement of left knee with medial meniscal tear. 2. Hypertension. 3. Hyperlipidemia. 4. Pif-llavmfx-yujvzuudg diabetes. PLAN: Left knee arthroscopy with partial meniscectomy and debridement. MMODL / IJN: [id number] /
[~2021-02-27 10:35] MED LIST changes: -ACETAMINOPHEN TAB 500 MG TAB PO ONE; +LACTATED RINGERS 1,000 ML IV SCH; +LIDOCAINE 1% (10MG/ML) FOR IV START INTRADERMA PRN; -MELOXICAM 7.5 MG TAB PO ONE; -ROPIVACAINE 246.25 MG, EPINEPHrine 0.5 MG, KETOROLAC 30 MG, cloNIDine HCL/PF 80 MCG, WA... MISCELLANE ONE; -TRANEXAMIC ACID 1,000 MG in SODIUM CHLORIDE 0.9% 100 ML IVPB ONE; -VANCOMYCIN 2,000 MG in SODIUM CHLORIDE 0.9% 500 ML 500 ML IVPB ONE; +ceFAZolin 3 GM in SODIUM CHLORIDE 0.9% 100 ML IVPB PRN
[2021-02-27] MEDS ORDERED: ONDANSETRON 4 MG/2 ML VIAL IVP ONE (11:26)
[2021-02-27] MEDS ORDERED: DEXAMETHASONE SOD PHOSPHATE 4 MG/ML 1 ML VIAL IVP ONE (11:26)
[2021-02-27] MEDS ORDERED: ONDANSETRON 4 MG/2 ML VIAL ONE (11:36)
[2021-02-27 11:44] LABS: Glucose,Whole Blood 176 mg/dL (75-99)
[2021-02-27] MEDS ORDERED: fentaNYL (PF) 50 MCG/ML 2 ML AMP ONE (12:50)
[2021-02-27] MEDS ORDERED: LIDOCAINE 1% INJ 10MG/ML (20 ML MDV) ONE (12:50)
[2021-02-27] MEDS ORDERED: PROPOFOL 10 MG/ML 20 ML VIAL IV ONE (12:50)
[2021-02-27] MEDS ORDERED: SUCCINYLCHOLINE CHLORIDE 100 MG/5 ML SYR IV ONE (12:50)
[2021-02-27] MEDS ORDERED: BUPIVACAINE (PF) 0.25% 30 ML VIAL INTRAARTIC ONE ×2 (13:14→13:22)
--- NOTE | 2021-02-27 13:36 | P.OP ---
Date of Procedure: 02/27/21 Preoperative Diagnosis: Internal derangement left knee Postoperative Diagnosis: 1. Tear medial meniscus left knee 2. Reactive synovitis medial, lateral and suprapatellar compartments left knee Procedure(s) Performed: 1. Arthroscopic partial medial meniscectomy left knee 2. Arthroscopic partial synovectomy medial, lateral and suprapatellar compartments left knee Anesthesia: MICHELA, local Surgeon: Aric Kahn Estimated Blood Loss (ml): 7 Pathology: none sent Condition: stable Disposition: PACU Indications for Procedure: 50-year-old gentleman seen with progressive right knee pain. We discussed treatment options. He elected to proceed with arthroscopy. Operative Findings: see description of procedure Description of Procedure: Patient was taken to the operative suite. Patient underwent a general anesthetic by the department of anesthesia. Patient was given preoperative antibiotics. The left lower extremity was placed in a well-padded arthroscopic leg [place]. The left leg was prepped and draped in the normal sterile orthopedic fashion. A lateral parapatellar and suprapatellar incision was made. Trochars were inserted. Arthroscopy was initiated. Suprapatellar pouch revealed diffuse thick reactive synovitis. The patellofemoral joint appeared to articulate congruently. There was grade 1 chondromalacia with no osteochondral tears present. The scope was guided into the medial gutter. The scope was then guided into the medial compartment. A medial parapatellar incision was made. Trocar inserted followed by probe. There was a radial tear posterior horn medial meniscus. There was no significant chondromalacia present. There was thick reactive synovitis anteriorly. I performed a partial medial meniscectomy getting down to stable meniscal tissue. I performed a partial synovectomy decom pressing thick reactive synovitis anteriorly. The residual meniscus was probed and found to be stable. There was good decompression of synovitis. Scope and probe were then guided into the intercondylar notch. Cruciates were identified, probed and found to be stable. The scope and probe were then guided into lateral compartment. There was no significant chondromalacia. The lateral meniscus was probed and found to be stable. Her was some thick reactive synovitis anteriorly. I introduced a motorized shaver and performed a partial synovectomy decompressing the thick reactive synovitis. Shaver was removed. There was good decompression of the reactive synovitis noted. The scope was in guided back into the suprapatellar compartment. Used a motorized shaver into the super patellar compartment. I debrided some piecemeal fragments of meniscus I encountered. I performed a partial synovectomy decompressing the reactive synovitis. Instruments were now removed from the joint. The joint was infiltrated with .25% Marcaine. Steri-Strips were applied to the portal sites. Sterile dressings were applied. The patient was placed into a MICAH hose. No tourniquet was utilized. The patient was awakened, transferred to a bed and taken to recovery stable satisfactory condition.
[2021-02-27] MEDS ORDERED: HYDROmorphone 0.5 MG/0.5 ML SYRINGE IVP ONE ×2 (13:47→14:08)
[2021-02-27 13:58] VITALS: TEMP 97
[2021-02-27 14:06] LABS: Glucose,Whole Blood 192 mg/dL (75-99)
[2021-02-27 14:33] VITALS: RESP 20
[2021-02-27] MEDS ORDERED: HYDROcodone/APAP 7.5-325MG 1 EACH TAB ONE (14:43)
[2021-02-27] MEDS ORDERED: HYDROcodone/APAP 7.5-325MG 1 EACH TAB PO ONE (14:45)
[2021-02-27 15:16] VITALS: BP 138/78; PULSE 90
== END 2021-02-27 15:37 | disposition home or self-care (01) ==
LOC: OR 10:35
PROVIDERS: ATTEND Orthopaedic Surgery
DX: M23.322 Other meniscus derangements, posterior horn of medial meniscus, left knee (principal); M65.862 Other synovitis and tenosynovitis, left lower leg; M94.262 Chondromalacia, left knee; M17.12 Unilateral primary osteoarthritis, left knee; I10 Essential (primary) hypertension; E78.5 Hyperlipidemia, unspecified; E11.9 Type 2 diabetes mellitus without complications; K08.89 Other specified disorders of teeth and supporting structures; J44.9 Chronic obstructive pulmonary disease, unspecified; Z90.49 Acquired absence of other specified parts of digestive tract; Z98.890 Other specified postprocedural states; Z79.899 Other long term (current) drug therapy; Z79.82 Long term (current) use of aspirin; Z79.84 Long term (current) use of oral hypoglycemic drugs; Z79.1 Long term (current) use of non-steroidal anti-inflammatories (NSAID); Z79.891 Long term (current) use of opiate analgesic
CPT/HCPCS: 29881; J1100; J0690; J2405; J2001; J3010; J0330; J2704; J1170

== ENCOUNTER → 2021-07-17 | Outpatient (CLI) | payer MEDICARE ==
--- NOTE | 2021-07-18 02:37 | MR ---
EXAMINATION TYPE: MR knee LT wo con DATE OF EXAM: 07/17/2021 COMPARISON: 01/19/2021 HISTORY: Left knee pain. The planar multiecho imaging of the left knee without contrast. The anterior and posterior cruciate ligaments appear intact. There is knee joint effusion. The collat eral ligaments appear intact. There is increased signal in the anterior aspect of the lateral horn of the lateral meniscus. This is consistent with an oblique tear extending to the superior surface. There is tear extending horizonta lly as well. The posterior horn of the lateral meniscus appears fairly normal. There is slight truncation of the posterior horn of the medial meniscus. This could be previous surge ry. I do not see a tear of the medial meniscus. Exam limited slightly by motion. There is no evidence of a fracture. I see no focal bone destruction. There is no bone edema. IMPRESSION: Complex tear of the anterior horn of the lateral meniscus. This appears similar to old exam. Mild phan ncation posterior horn medial meniscus could relate to old tear or surgery and appears increased comp ared to old exam.. Knee joint effusion. No evidence of ligamentous tear. No fracture. Joint effusion increased compared to old exam.
== END | disposition home or self-care (01) ==
LOC: RADMRIMAIN 19:11
PROVIDERS: ATTEND Orthopaedic Surgery
DX: S83.272A Complex tear of lateral meniscus, current injury, left knee, initial encounter (principal); X58.XXXA Exposure to other specified factors, initial encounter

== ENCOUNTER → 2021-08-15 | Outpatient (CLI) | payer MEDICARE ==
[2021-08-15 13:31] LABS: Basophils % (A) 1 %; Eosinophils # (A) 0.4 k/uL (0-0.7); Eosinophils % (A) 5 %; HGB 14.1 gm/dL (13.0-17.5); Lymphocytes # (A) 0.8 k/uL (1.0-4.8); Lymphocytes % (A) 10 %; MCH 30.3 pg (25.0-35.0); MCV 94.8 fL (80.0-100.0); Mean Platelet Volume 6.8; Monocytes # (A) 0.4 k/uL (0-1.0); Monocytes % (A) 5 %; Neutrophils # (A) 6.2 k/uL (1.3-7.7); Neutrophils % (A) 78 %; Platelet Count 340 k/uL (150-450); RBC 4.64 m/uL (4.30-5.90); WBC 7.9 k/uL (3.8-10.6)
[2021-08-15 13:50] LABS: Potassium 4.6 mmol/L (3.5-5.1)
== END | disposition home or self-care (01) ==
LOC: LABPAT 12:17
PROVIDERS: ATTEND Orthopaedic Surgery
DX: Z01.812 Encounter for preprocedural laboratory examination (principal); M23.92 Unspecified internal derangement of left knee
CPT/HCPCS: 36415; 80051; 85025; 93005

== ENCOUNTER 2021-08-28 08:45 | Day surgery (SDC) | payer MEDICARE ==
[2021-08-22 17:35] VITALS: BMI 42.7
--- NOTE | 2021-08-27 14:22 | HP ---
HISTORY AND PHYSICAL DATE OF SURGERY: 08/28/2021 Savage Newell is a 51-year-old gentleman seen with progressive left knee pain. We discussed options for treatment. He elected to proceed with arthroscopy. Consent was obtained. PAST MEDICAL HISTORY: Hyperlipidemia, hypertension, waw-iylkzqj-ujqqnhqrz diabetes. PAST SURGICAL HISTORY: Cholecystectomy, right total knee arthroplasty, left knee arthroscopy. DAILY MEDICATIONS: Atorvastatin, benazepril, metformin, ibuprofen, Tylenol. ALLERGIES: NONE. SOCIAL HISTORY: He denies current tobacco use. PHYSICAL EVALUATION OF THE LEFT KNEE: Range of motion is negative 2/3 to 120. Moderate effusion. Tenderness, lateral joint line. Positive lateral Eliel's. Ligaments stable. Hip rotation without pain. Distal neurovascular exam intact. IMAGING: Radiographs of the left knee reveal osteoarthritic changes. MRI left knee revealed lateral meniscal tear. IMPRESSION: 1. Internal derangement of left knee with lateral meniscal tear. 2. Hypertension. 3. Hyperlipidemia. 4. War-osqhbcf-chfnzcnby diabetes. PLAN: Left knee arthroscopy with partial meniscectomy and debridement. MMODL / IJN: [id number] /
[~2021-08-28 08:45] MED LIST changes: -LACTATED RINGERS 1,000 ML IV SCH; -LIDOCAINE 1% (10MG/ML) FOR IV START INTRADERMA PRN
[2021-08-28] MEDS ORDERED: LACTATED RINGERS 1,000 ML IV ONE (09:40)
[2021-08-28] MEDS ORDERED: ONDANSETRON 4 MG/2 ML VIAL ONE (09:40)
[2021-08-28] MEDS ORDERED: LIDOCAINE 1% (10MG/ML) FOR IV START INTRADERMA ONE (09:40)
[2021-08-28] MEDS ORDERED: DEXAMETHASONE SOD PHOSPHATE 4 MG/ML 1 ML VIAL IV ONE (09:45)
[2021-08-28 09:50] LABS: Glucose,Whole Blood 141 mg/dL (75-99)
[2021-08-28] MEDS ORDERED: MIDAZOLAM 2 MG/2 ML VIAL ONE (10:12)
[2021-08-28] MEDS ORDERED: PROPOFOL 10 MG/ML 20 ML VIAL IV ONE (10:12)
[2021-08-28] MEDS ORDERED: SUCCINYLCHOLINE CHLORIDE VIAL 200 MG/10 ML VIAL IV ONE (10:12)
[2021-08-28] MEDS ORDERED: fentaNYL (PF) 50 MCG/ML 2 ML AMP ONE (10:12)
[2021-08-28] MEDS ORDERED: LIDOCAINE 1% INJ 10MG/ML (20 ML MDV) ONE (10:12)
[2021-08-28] MEDS ORDERED: BUPIVACAINE (PF) 0.25% 30 ML VIAL SQ ONE ×3 (10:24→10:56)
--- NOTE | 2021-08-28 11:11 | P.OP ---
Date of Procedure: 08/28/21 Preoperative Diagnosis: Internal derangement left knee Postoperative Diagnosis: 1. Lateral meniscal tear left knee 2. Reactive synovitis medial, lateral and suprapatellar compartments left knee Procedure(s) Performed: 1. Arthroscopic partial lateral meniscectomy left knee 2. Arthroscopic partial synovectomy medial, lateral and suprapatellar compartments left knee Anesthesia: MICHELA, local Surgeon: Aric Kahn Estimated Blood Loss (ml): 7 Pathology: none sent Condition: stable Disposition: PACU Indications for Procedure: 51-year-old patient seen with progressive left knee pain. After treatment options were discussed, he elected to proceed with arthroscopy. Operative Findings: See description of procedure Description of Procedure: Patient was taken to the operative suite. Patient underwent a general anesthe tic by the department of anesthesia. Patient was given preoperative antibiotics. The left lower extremity was placed in a well-padded arthroscopic leg seg[place]. The left leg was prepped and draped in the normal sterile orthopedic fashion. A lateral parapatellar and suprapatellar incision was made. Trochars were inserted. Arthroscopy was initiated. Suprapatellar pouch revealed diffuse thick reactive synovitis. The patellofemoral joint appeared to articulate congruently. There was grade 2 chondromalacia involving the femoral sulcus with no osteochondral tears present. The scope was guided into the medial gutter. No loose bodies or plica were identified. The scope was then guided into the medial compartment. A medial parapatellar incision was made. Trocar inserted followed by probe. The medial meniscus was probed and was found to be stable. There was evidence for previous partial meniscectomy. There were some grade 1 chondromalacia changes involving the medial compartment with no osteochondral tears present. There was some thick reactive synovitis anteriorly. I introduced a motorized shaver and I performed a partial synovectomy. Shaver was removed. There was good decompression of the synovitis. Scope and probe were then guided into the intercondylar notch. Cruciates were identified, probed and found to be stable. The scope and probe were then guided into lateral compartment. There was a tear involving the anterior horn and midbody lateral meniscus. There were grade 1 chondromalacia changes of the lateral compartment with no tears. There was thick reactive synovitis anteriorly. I performed a partial lateral meniscectomy getting down to stable meniscal tissue. I performed a partial synovectomy decompressing the thick reactive synovitis. The residual meniscus was probed and found to be stable. There was good decompression of the synovitis. The scope was in guided back into the suprapatellar compartment. I introduced a motorized shaver into the suprapatellar compartment. I performed a partial synovectomy. The shaver was removed. There appeared be good decompression of the synovitis. I took one more look on the entire knee, no residual debris. Instruments were now removed from the joint. The joint was infiltrated with .25% Marcaine. Steri-Strips were applied to the portal sites. Sterile dressings were applied. The patient was placed into a MICAH hose. No tourniquet was utilized. The patient was awakened, transferred to a bed and taken to recovery stable satisfactory condition.
[2021-08-28 11:18] VITALS: RESP 16; TEMP 97.3
[2021-08-28] MEDS ORDERED: HYDROmorphone 0.5 MG/0.5 ML SYRINGE IVP ONE (11:30)
[2021-08-28 12:33] VITALS: PULSE 94
[2021-08-28 12:44] VITALS: BP 118/81
== END 2021-08-28 13:02 | disposition home or self-care (01) ==
LOC: OR 08:45
PROVIDERS: ATTEND Orthopaedic Surgery
DX: S83.282A Other tear of lateral meniscus, current injury, left knee, initial encounter (principal); E11.9 Type 2 diabetes mellitus without complications; E78.5 Hyperlipidemia, unspecified; I10 Essential (primary) hypertension; Z79.84 Long term (current) use of oral hypoglycemic drugs; Z90.49 Acquired absence of other specified parts of digestive tract
CPT/HCPCS: 29881; J2250; J0330; J1100; J0690; J2405; J2001; J3010; J2704; J1170

== ENCOUNTER → 2021-11-01 | Outpatient (CLI) | payer MEDICARE ==
--- NOTE | 2021-11-01 08:41 | CTL ---
EXAMINATION TYPE: CT Low Dose Lung DATE OF EXAM ORDERED: 11/01/2021 COMPARISON: No prior studies available for review. HISTORY: . Low Dose CT Lung Screening CT DLP: 146.[address] CTDI: 4.3 mGy IV CONTRAST USED: None. SCREENING VISIT: First visit COMPARISON: None. TECHNIQUE: Low dose computed tomography scan was performed through the chest at 1 millimeter thick se ctions and reconstructed images in the coronal plane at [address] DIAGNOSTIC QUALITY: Satisfactory FINDINGS: LUNG NODULES: No distinct pulmonary nodules are identified at this time. LUNGS: COPD: Severity: Mild Fibrosis: Severity:None Lymph nodes: None Other findings: None RIGHT PLEURAL SPACE: Effusion: None Calcification: None Thickening: None Pneumothorax: None LEFT PLEURAL SPACE: Effusion: None Calcification: None Thickening: None Pneumothorax: None HEART: Heart Size: Mildly enlarged Coronary calcification: Mild Pericardial effusion: None OTHER FINDINGS: Upper abdomen: No significant abnormality Bony thorax: Degenerative changes Supraclavicular region: No significant abnormalityOther: No significant abnormalityI IMPRESSION: Benign FOLLOW UP CT CHEST RECOMMENDATION: Follow-up screening in one year CT LUNG RAD: LUNG RAD CATEGORY negative 1
== END | disposition home or self-care (01) ==
LOC: RADCTMAIN 08:10
PROVIDERS: ATTEND Family Medicine
DX: Z12.2 Encounter for screening for malignant neoplasm of respiratory organs (principal); Z87.891 Personal history of nicotine dependence
CPT/HCPCS: 71271